=== PATIENT | female | born 1950 | race Hispanic/Latino ===

== ENCOUNTER 2019-01-13 05:59 | Day surgery (SDC) | payer MEDICARE ==
[2018-12-29 09:01] VITALS: BMI 32.0
[~2019-01-13 05:59] MED LIST: EPINEPHrine 0.3 MG in Ophthalmic Irrigation Solution 500 ML FS SCH
[2019-01-13] MEDS ORDERED: EPINEPHrine 0.3 MG in Ophthalmic Irrigation Solution 500 ML IV SCH (06:00)
[2019-01-13] MEDS ORDERED: Phenylephrine 2.5% Ophth Soln 5 ML BOT ONE (06:17)
[2019-01-13] MEDS ORDERED: Cyclopentolate 1% Opth Drop 2 ML BOT ONE (06:17)
[2019-01-13] MEDS ORDERED: Propofol 1,000 MG/100 ML VIAL IV ONE (06:39)
[2019-01-13] MEDS ORDERED: Midazolam HCl 2 mg/2 ml Vial ONE (06:39)
[2019-01-13] MEDS ORDERED: Fentanyl 100 MCG/2 ML VIAL ONE (06:39)
[2019-01-13] MEDS ORDERED: PROPOFOL 20 ML ONE (06:42)
--- NOTE | 2019-01-13 13:46 | OP ---
DATE OF PROCEDURE: 01/13/2019 PRINCIPAL PREOPERATIVE DIAGNOSES: 1. Vitreous hemorrhage, right eye. 2. Proliferative diabetic retinopathy, right eye. ESTIMATED BLOOD LOSS: None. SPECIMENS REMOVED: None. COMPLICATIONS: None. PROCEDURES PERFORMED: 1. A 25-gauge pars plana vitrectomy, right eye. 2. Panretinal photocoagulation, right eye. ANESTHESIA: MAC with retrobulbar block. DESCRIPTION OF PROCEDURE: The patient was identified in the preoperative holding area. The correct eye being the right eye was marked for surgery. The patient was taken to the operating room, where MAC anesthesia was induced. A retrobulbar block was administered to the right eye. The block consisted of 1:1 ratio of 4% lidocaine and 0.75% Marcaine. A total of 5 mL were administered. The patient's right eye was then prepped and draped in the usual sterile fashion for surgery. A wire lid speculum was placed. A standard 25-gauge pars plana vitrectomy platform was fashioned with trocars placed approximately 3.5 mm from the limbus. The infusion was noted to be within the vitreous cavity prior to being turned on to infusion pressure of 30 mmHg. The light pipe Micro vitrector was introduced in the eye under visualization with the BIOM viewing system. A moderate vitreous hemorrhage was performed partially obscuring view of the fundus. A careful core and peripheral shave vitrectomy were performed, which allowed for significant clearance and improved view of the fundus. Following completion of vitrectomy, the Endolaser was used to perform a fill-in panretinal photocoagulation with the assistance of scleral depression inferiorly. The cannulas were sequentially removed and all sclerotomies were noted to be watertight. The wire lid speculum was removed followed by application of TobraDex ophthalmic ointment and a light patch and shield. The patient tolerated the procedure well and taken to outpatient recovery area in good condition. Job ID: [id number]
== END 2019-01-13 08:25 | disposition home or self-care (01) ==
LOC: SDC 05:59
PROVIDERS: ATTEND Ophthalmology Retina Specialist
PROC: 08T43ZZ Resection of Right Vitreous, Percutaneous Approach (ICD-10-PCS; principal; 2019-01-13)
PROC: 08QE3ZZ Repair Right Retina, Percutaneous Approach (ICD-10-PCS; 2019-01-13)
DX: E11.3591 Type 2 diabetes mellitus with proliferative diabetic retinopathy without macular edema, right eye (principal); H43.11 Vitreous hemorrhage, right eye
CPT/HCPCS: 36416; J0171; J2250; J2704; J3010